=== PATIENT | female | born 1955 | race Caucasian/White ===

== ENCOUNTER → 2016-11-09 | Outpatient (CLI) | payer OTHER, BC ==
[~2016-11-09] MED LIST: OMEPRAZOLE 20 M20 M1 PO; PREDNISONE 20 M20 M1 PO; SERTRALINE HCL100 MG PO; SIMVASTATIN80 MG PO; VASOTEC20 MG PO
== END ==
LOC: RAD 09:01
DX: N64.4 Mastodynia (principal)

== ENCOUNTER → 2018-01-17 | Outpatient (CLI) | payer OTHER, BC | LOC: RAD 02:32 | DX: Z12.31 Encounter for screening mammogram for malignant neoplasm of breast (principal); I10 Essential (primary) hypertension ==

== ENCOUNTER 2018-04-15 14:28 | Emergency (ER) | payer OTHER, BC ==
[~2018-04-15] VITALS: Ht 170.2 cm; Wt 88.0 kg
[2018-04-15 16:30] VITALS: BP 149/85
== END 2018-04-15 17:26 | disposition home or self-care (01) ==
LOC: ER 14:28
DX: M54.2 Cervicalgia (principal); R51 Headache; I10 Essential (primary) hypertension; M19.90 Unspecified osteoarthritis, unspecified site; M79.7 Fibromyalgia; Z88.0 Allergy status to penicillin; Z88.1 Allergy status to other antibiotic agents; Z88.2 Allergy status to sulfonamides; Z88.6 Allergy status to analgesic agent; Z88.8 Allergy status to other drugs, medicaments and biological substances; V89.2XXA Person injured in unspecified motor-vehicle accident, traffic, initial encounter; Y93.89 Activity, other specified; Y92.410 Unspecified street and highway as the place of occurrence of the external cause; Y99.8 Other external cause status

== ENCOUNTER → 2019-01-21 | Outpatient (CLI) | payer OTHER, BC | LOC: RAD 01:13 | DX: Z12.31 Encounter for screening mammogram for malignant neoplasm of breast (principal) ==

== ENCOUNTER → 2020-04-28 | Outpatient (CLI) | payer OTHER, BC | LOC: RAD 15:10 | PROVIDERS: ATTEND Internal Medicine | DX: Z12.31 Encounter for screening mammogram for malignant neoplasm of breast (principal) ==